=== PATIENT | female | born 2000 | race Caucasian/White ===

== ENCOUNTER → 2021-05-03 | Outpatient (CLI) | payer BC, OTHER | LOC: US 04-30 14:30 → EXRD 10:53 | DX: H93.A2 Pulsatile tinnitus, left ear (principal) | CPT/HCPCS: 93880 ==

== ENCOUNTER → 2021-06-01 | Outpatient (CLI) | payer BC, OTHER | LOC: MRI 13:00 | DX: H93.A2 Pulsatile tinnitus, left ear (principal) | CPT/HCPCS: 70544; 70553; A9577 ==

== ENCOUNTER → 2021-07-05 | Outpatient (CLI) | payer BC, OTHER | LOC: KOH-I 08:00 | DX: H93.A1 Pulsatile tinnitus, right ear (principal) | CPT/HCPCS: 70481; Q9967 ==